=== PATIENT | female | born 1975 | race Two or more races ===

== ENCOUNTER 2020-11-08 09:37 | Day surgery (SDC) | payer OTHER | END 2020-11-08 14:05 | disposition home or self-care (01) | LOC: AMB-ENDOS 09:37 | PROVIDERS: ATTEND Surgery | DX: K31.7 Polyp of stomach and duodenum (principal); K29.60 Other gastritis without bleeding; Z20.828 Contact with and (suspected) exposure to other viral communicable diseases; K44.9 Diaphragmatic hernia without obstruction or gangrene; K64.4 Residual hemorrhoidal skin tags ==